=== PATIENT | male | born 1990 | race Caucasian/White ===

== ENCOUNTER 2023-01-06 15:09 | Emergency (ER) | payer OTHER ==
[~2023-01-06] VITALS: Ht 182.9 cm; Wt 104.0 kg
[2023-01-06 15:30] LABS: BASOPHILS 0.6 % (0-2); EOSINOPHILS 1.3 % (0-6); HEMATOCRIT 43.6 % (35.0-50.0); HEMOGLOBIN 14.7 g/dL (12.0-18.0); LYMPHOCYTES 39.6 % (24-44); MCHC 33.7 g/dl (30-36); MCV 91.9 fl (81-99); MONOCYTES 10.3 % (0-12); NEUTROPHILS 48.2 % (39-80); PLATELET COUNT 204 K/uL (140-440); RBC 4.75 M/ul (4.3-5.7); RDW 13.4 (10.5-15.0)
[2023-01-06 15:47] LABS: ALBUMIN 4.3 g/dL (3.4-5.0); ALBUMIN/GLOBULIN RATIO 1.26 (1.1-2.4); ALCOHOL, MEDICAL <3 ng/dL (<3); ALKALINE PHOSPHATASE 84 U/L (46-116); ALT (SGPT) 23 U/L (14-59); ANION GAP 11.9 (7-21); AST (SGOT) 19 U/L (15-37); BILIRUBIN, TOTAL 0.8 ng/dL (0.2-1.0); BUN/CREATININE RATIO 11.62 (6.0-28.6); CALCIUM 8.9 mg/dL (8.5-10.1); CARBON DIOXIDE 28 mmol/L (21-32); CHLORIDE 103 mmol/L (98-107); CREATININE, SERUM 0.86 mg/dL (0.70-1.30); GLOMERULAR FILTRATION RATE,EST 119 mL/min (>60); POTASSIUM 3.9 mmol/L (3.5-5.1); PROTEIN, TOTAL 7.7 g/dL (6.4-8.2); UREA NITROGEN 10 mg/dL (7-18)
[2023-01-06 16:41] LABS: BASE EXCESS, BLOOD GAS 0 mmol/L (-2-2); HCO3, BLOOD GAS 24.7 mmol/L (22-26); O2 SATURATION, BLOOD GAS 99.9 % (95.0-100.0); PCO2, BLOOD GAS 39.6 mmHg (35-45); PO2, BLOOD GAS 128 mmHg (80-100); TOTAL CO2, BLOOD GAS 25.9
[2023-01-06 16:42] LABS: OXYGEN RECEIVED, BLOOD GAS 28%
[2023-01-06 16:56] LABS: BILIRUBIN, URINE NEGATIVE (negative); BLOOD/HGB, URINE NEGATIVE (Negative); KETONE, URINE NEGATIVE (Negative); LEUK ESTERASE, URINE NEGATIVE (negative); NITRITE, URINE NEGATIVE (negative); PH, URINE 6.5 (5-7)
[2023-01-06 17:10] LABS: AMPHETAMINES, URINE NEGATIVE (NEGATIVE); BARBITURATES, URINE NEGATIVE (NEGATIVE); BENZODIAZEPINE, URINE NEGATIVE (NEGATIVE); BUPRENORPHINE, URINE NEGATIVE (NEGATIVE); CANNABINOID, URINE NEGATIVE (NEGATIVE); COCAINE, URINE NEGATIVE (NEGATIVE); ECSTASY, URINE NEGATIVE (NEGATIVE); FENTANYL, URINE NEGATIVE (NEGATIVE); METHADONE, URINE NEGATIVE (NEGATIVE); OPIATES, URINE NEGATIVE (NEGATIVE); OXYCODONE, URINE NEGATIVE (NEGATIVE); PHENCYCLIDINE, URINE NEGATIVE (NEGATIVE)
[2023-01-06 19:34] VITALS: BP 132/86
== END 2023-01-06 19:34 | disposition short-term general hospital (02) ==
LOC: ED 15:09
PROVIDERS: Emergency Medicine
DX: G93.1 Anoxic brain damage, not elsewhere classified (principal); R56.9 Unspecified convulsions; Z11.52 Encounter for screening for COVID-19; X83.8XXA Intentional self-harm by other specified means, initial encounter
CPT/HCPCS: 31500; 36415; 36600; 70450; 70498; 71045; 80053; 80307; 81003; 82803; 85025; G0480; J1953; J2060; J2405; J2704; U0002

== ENCOUNTER 2023-01-09 18:16 | Emergency (ER) | payer OTHER ==
[~2023-01-09] VITALS: Ht 182.9 cm; Wt 103.9 kg
--- NOTE | ~2023-01-09 | EKG ---
[facility] [address] [facility], [place] [address] Draft EK completed, results pending confirmation PATIENT NAME: ANNE BURRELL Electrocardiogram DATE OF : 89 PHYSICIAN: PRELIMINARY REPORT #: [id number] REPORT IS CONFIDENTIAL AND NOT TO BE RELEASED WITHOUT AUTHORIZATION
--- OUTSIDE RECORDS SUMMARY | 2023-01-09 18:20 | XMS ---
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 Vic has no Care Guidelines for this patient. Edgardo VISIT COUNT (12 MO.) 2 [facility] TOTAL 2 NOTE: Visits indicate total known visits. ED/[facility] VISIT TRACKING (12 MO.) 01/09/2023 18:17 [facility] [place] TYPE: Emergency COMPLAINT: - SUICIDE ATTEMPT 01/06/2023 15:[address] [facility] [place] TYPE: Emergency COMPLAINT: - SUICIDE ATTEMPT DIAGNOSES: - Anoxic brain damage, not elsewhere classified - Encounter for screening for COVID-19 - Intentional self-harm by other specified means, initial encounter - Suicide attempt, initial encounter - Unspecified convulsions INPATIENT VISIT TRACKING (12 MO.) No inpatient visits to display in this time frame [email or web address]
[2023-01-09 18:30] LABS: BASOPHILS 0.7 % (0-2); EOSINOPHILS 2.6 % (0-6); HEMATOCRIT 47.2 % (35.0-50.0); HEMOGLOBIN 15.8 g/dL (12.0-18.0); LYMPHOCYTES 40.6 % (24-44); MCH 30.9 (27-36); MCHC 33.5 g/dl (30-36); MCV 92.1 fl (81-99); MONOCYTES 10.6 % (0-12); NEUTROPHILS 45.5 % (39-80); PLATELET COUNT 216 K/uL (140-440); RBC 5.12 M/ul (4.3-5.7); RDW 13.4 (10.5-15.0)
[2023-01-09 18:33] LABS: PH, VENOUS 7.439 (7.31-7.41)
[2023-01-09 18:43] LABS: ALBUMIN 4.1 g/dL (3.4-5.0); ALBUMIN/GLOBULIN RATIO 1.08 (1.1-2.4); ANION GAP 13.9 (7-21); BILIRUBIN, TOTAL 0.6 ng/dL (0.2-1.0); BUN/CREATININE RATIO 15.05 (6.0-28.6); CALCIUM 9.8 mg/dL (8.5-10.1); CREATININE, SERUM 0.93 mg/dL (0.70-1.30); POTASSIUM 3.9 mmol/L (3.5-5.1); PROTEIN, TOTAL 7.9 g/dL (6.4-8.2)
[2023-01-09 19:31] LABS: AMPHETAMINES, URINE NEGATIVE (NEGATIVE); BARBITURATES, URINE NEGATIVE (NEGATIVE); BENZODIAZEPINE, URINE NEGATIVE (NEGATIVE); BUPRENORPHINE, URINE NEGATIVE (NEGATIVE); CANNABINOID, URINE NEGATIVE (NEGATIVE); COCAINE, URINE NEGATIVE (NEGATIVE); ECSTASY, URINE NEGATIVE (NEGATIVE); FENTANYL, URINE NEGATIVE (NEGATIVE); METHADONE, URINE NEGATIVE (NEGATIVE); OPIATES, URINE NEGATIVE (NEGATIVE); OXYCODONE, URINE NEGATIVE (NEGATIVE); PHENCYCLIDINE, URINE NEGATIVE (NEGATIVE)
[2023-01-09 20:33] VITALS: BP 109/78
[2023-01-09] MEDS ORDERED: KEPPRA100 MG/1 M PO (20:34)
== END 2023-01-09 20:29 | disposition other institution, planned readmission (95) ==
LOC: ED 18:16
PROVIDERS: Emergency Medicine
DX: T14.91XA Suicide attempt, initial encounter (principal); X83.8XXA Intentional self-harm by other specified means, initial encounter; Z88.6 Allergy status to analgesic agent
CPT/HCPCS: 36415; 71045; 80053; 80307; 82803; 85025; 93005; 93010; J7030